=== PATIENT | male | born 1995 | race Caucasian/White ===

== ENCOUNTER 2021-03-25 15:57 | Emergency (ER) | payer OTHER ==
[2021-03-25] MEDS ORDERED: KEFLEX250 MG PO (16:42)
== END 2021-03-25 17:02 | disposition home or self-care (01) ==
LOC: FER 15:57
DX: R21 Rash and other nonspecific skin eruption (principal); F17.210 Nicotine dependence, cigarettes, uncomplicated; Z23 Encounter for immunization
CPT/HCPCS: 90471; 90715; 99282